=== PATIENT | female | born 1975 | race Caucasian/White ===

== ENCOUNTER 2023-04-09 10:07 | Day surgery (SDC) | payer OTHER ==
[2023-04-09] MEDS ORDERED: LIDOCAINE HCL 2% 100 MG/5 ML IJ ONE (10:08)
[2023-04-09 11:21] LABS: HCG URINE TEST NEGATIVE (NEGATIVE)
[2023-04-09] MEDS ORDERED: Versed 2 MG/2 ML Injection ONE (11:33)
[2023-04-09] MEDS ORDERED: DIPRIVAN 200 MG/20 ML IV ONE (11:33)
[2023-04-09] MEDS ORDERED: Lactated Ringers 1,000 ML IV ONE (12:55)
--- NOTE | 2023-04-09 13:44 | XRAY ---
Indication: Bilateral L4-S1 MBB. Intraoperative fluoroscopy provided for 11 seconds. Single digital spot image submitted for interpretation demonstrates posterior needle tips projecting over the expected left and right L4-S1 nerve roots. Correlate with intraoperative findings/report.
--- NOTE | 2023-04-09 13:58 | XRAY ---
11 seconds of fluoroscopy was used in surgery for a bilateral L4-S1 MBB.
== END 2023-04-09 12:15 | disposition home or self-care (01) ==
LOC: SDC-PAIN 10:07
PROVIDERS: ATTEND Psychiatry & Neurology Pain Medicine
DX: M47.816 Spondylosis without myelopathy or radiculopathy, lumbar region (principal); Z79.899 Other long term (current) drug therapy
CPT/HCPCS: 64493; 64494; 72020; 77002; 81025; J2250; J2704

== ENCOUNTER 2023-05-14 10:28 | Day surgery (SDC) | payer OTHER ==
[2023-05-14] MEDS ORDERED: BUPIVACAINE 0.5% VIAL IJ ONE (10:29)
[2023-05-14 12:18] LABS: HCG URINE TEST NEGATIVE (NEGATIVE)
[2023-05-14] MEDS ORDERED: DIPRIVAN 200 MG/20 ML IV ONE (12:44)
[2023-05-14] MEDS ORDERED: Versed 2 MG/2 ML Injection ONE (12:45)
[2023-05-14] MEDS ORDERED: Lactated Ringers 1,000 ML IV ONE (15:04)
--- NOTE | 2023-05-14 17:00 | XRAY ---
Indication: Bilateral L4-S1 MBB. Intraoperative fluoroscopy provided for 19 seconds. Single digital spot image submitted for interpretation demonstrates posterior needle tips projecting over the expected left and right L4-S1 nerve roots. Correlate with intraoperative findings/report.
--- NOTE | 2023-05-14 17:20 | XRAY ---
19 seconds of fluoroscopy was used in surgery for a bilateral L4-S1 MBB.
== END 2023-05-14 13:20 | disposition home or self-care (01) ==
LOC: SDC-PAIN 10:28
PROVIDERS: ATTEND Psychiatry & Neurology Pain Medicine
DX: M47.816 Spondylosis without myelopathy or radiculopathy, lumbar region (principal); Z79.899 Other long term (current) drug therapy
CPT/HCPCS: 64493; 64494; 64495; 72020; 77002; 81025; J2250; J2704

== ENCOUNTER 2023-06-25 13:12 | Day surgery (SDC) | payer OTHER ==
[2023-06-25] MEDS ORDERED: XYLOCAINE-MPF 1% 5ML SDV IJ ONE (13:13)
[2023-06-25] MEDS ORDERED: BUPIVACAINE 0.5% VIAL IJ ONE (13:13)
[2023-06-25] MEDS ORDERED: Depo-Medrol 40 MG/ML IM ONE (13:13)
[2023-06-25 14:08] LABS: HCG URINE TEST NEGATIVE (NEGATIVE)
[2023-06-25] MEDS ORDERED: DIPRIVAN 200 MG/20 ML IV ONE (14:48)
[2023-06-25] MEDS ORDERED: Versed 2 MG/2 ML Injection ONE (14:48)
[2023-06-25] MEDS ORDERED: Lactated Ringers 1,000 ML IV ONE (15:34)
--- NOTE | 2023-06-25 20:54 | XRAY ---
Indication: Left L4-S1 RFA. Intraoperative fluoroscopy provided for 27 seconds. 3 digital spot image submitted for interpretation demonstrates posterior needle tip projecting over the expected left L4-S1 nerve roots. Correlate with intraoperative findings/report.
--- NOTE | 2023-06-25 21:44 | XRAY ---
27 seconds of fluoroscopy was used in surgery for a left L4-S1 RFA.
== END 2023-06-25 15:24 | disposition home or self-care (01) ==
LOC: SDC-PAIN 13:12
PROVIDERS: ATTEND Psychiatry & Neurology Pain Medicine
DX: M47.817 Spondylosis without myelopathy or radiculopathy, lumbosacral region (principal); Z79.899 Other long term (current) drug therapy
CPT/HCPCS: 64635; 64636; 72100; 77002; 81025; J1030; J2250; J2704

== ENCOUNTER 2023-06-26 13:07 | Day surgery (SDC) | payer OTHER ==
[2023-06-26] MEDS ORDERED: XYLOCAINE-MPF 1% 5ML SDV IJ ONE (13:08)
[2023-06-26] MEDS ORDERED: BUPIVACAINE 0.5% VIAL IJ ONE (13:08)
[2023-06-26] MEDS ORDERED: Depo-Medrol 40 MG/ML IM ONE (13:08)
[2023-06-26 13:34] LABS: HCG URINE TEST NEGATIVE (NEGATIVE)
[2023-06-26] MEDS ORDERED: DIPRIVAN 200 MG/20 ML IV ONE ×2 (14:20→14:32)
[2023-06-26] MEDS ORDERED: Lactated Ringers 1,000 ML IV ONE (15:27)
--- NOTE | 2023-06-26 16:22 | XRAY ---
Indication: Right L4-S1 RFA. Intraoperative fluoroscopy provided for 19 seconds. 4 digital spot images submitted for interpretation demonstrates posterior needle tips projecting over the expected right L4-S1 nerve roots. Correlate with intraoperative findings/report.
--- NOTE | 2023-06-27 10:59 | XRAY ---
19 seconds of fluoroscopy was used in surgery for a right L4-S1 RFA.
== END 2023-06-26 14:58 | disposition home or self-care (01) ==
LOC: SDC-PAIN 13:07
PROVIDERS: ATTEND Psychiatry & Neurology Pain Medicine
DX: M47.816 Spondylosis without myelopathy or radiculopathy, lumbar region (principal)
CPT/HCPCS: 64635; 64636; 72100; 77002; 81025; J1030; J2704